=== PATIENT | male | born 1960 | race Two or more races ===

== ENCOUNTER 2023-10-19 10:16 | Emergency (ER) | payer MEDICAID ==
[~2023-10-19] VITALS: Ht 167.6 cm; Wt 72.7 kg
[2023-10-19 10:24] VITALS: TEMP 98
[2023-10-19] MEDS ORDERED: IBUP-1492 PO (10:48)
[2023-10-19] MEDS ORDERED: ACET-3385 PO (10:48)
[2023-10-19] MEDS: IBUPROFEN 600 MG TABLET PO ONE (10:55)
[2023-10-19 12:05] VITALS: BP 121/84; PULSE 65; RESP 16
== END 2023-10-19 12:47 | disposition home or self-care (01) ==
LOC: EMS 10:16
DX: S46.002A Unspecified injury of muscle(s) and tendon(s) of the rotator cuff of left shoulder, initial encounter (principal); S46.001A Unspecified injury of muscle(s) and tendon(s) of the rotator cuff of right shoulder, initial encounter; X58.XXXA Exposure to other specified factors, initial encounter; Y93.89 Activity, other specified; Y92.89 Other specified places as the place of occurrence of the external cause; Y99.8 Other external cause status
CPT/HCPCS: 29105; 99283